=== PATIENT | female | born 1940 | race Caucasian/White ===

== ENCOUNTER 2019-05-12 03:38 | Inpatient (IN) | payer MEDICARE ==
[~2019-05-12] VITALS: Ht 165.1 cm; Wt 81.6 kg
[2019-05-12] MEDS ORDERED: ALBUTEROL (0.083%) 2.5MG/3ML NEB HHN STA (03:58)
[2019-05-12] MEDS ORDERED: IPRATROPIUM BROMIDE (0.02%) 0.5MG/2.5ML NEB HHN STA (03:58)
[2019-05-12] MEDS ORDERED: METHYLPREDNISOLONE SOD SUCC 125 MG/2 ML VIAL IV STA (03:58)
[2019-05-12 04:55] LABS: BASOPHILS % 0.6 % (0.0-2.0); EOSINOPHILS % 0.2 % (0.0-5.0); HEMATOCRIT. 41.4 % (36.0-48.0); HEMOGLOBIN. 13.8 g/dL (12.0-16.0); LYMPHOCYTES % 17.7 % (20.0-50.0); MEAN CORPUSCULAR HEMOGLOBIN 29.6 pg (28.0-32.0); MEAN CORPUSCULAR VOLUME 88.9 fL (81.0-99.0); MEAN PLATELET VOLUME 11.4 fl (7.4-10.4); MONOCYTES % 4.2 % (2.0-8.0); NEUTROPHILS % 77.3 % (40.0-76.0); PLATELET 185 x1000/uL (130-400); RED BLOOD CELL COUNT 4.66 mill/uL (4.2-5.4)
[2019-05-12 04:56] LABS: BG BASE EXCESS -1.8 mmol/L (-2.0-2.0); BG CARBOXYHEMOGLOBIN 0.9 % (0.5-1.5); BG DEOXYHEMOGLOBIN 2.8 % (0.0-5.0); BG FRACTION INSPIRED OXYGEN 40; BG HCO3 ACT 22.3 mmol/L (22.0-26.0); BG METHEMOGLOBIN 0.4 % (0.0-1.5); BG OXYGEN SATURATION 97.2 % (92.0-98.5); BG OXYHEMOGLOBIN 95.9 % (94.0-97.0); BG PCO2 36.1 mmHg (35.0-45.0); BG PH 7.409 (7.350-7.450); BG PO2 97.6 mmHg (75.0-100.0); BG SAMPLE SITE RIGHT FEMORAL; BG VENT MODE NASAL CANNULA
[2019-05-12 05:01] LABS: CHLORIDE 103 mEq/L (98-107)
[2019-05-12 08:00] VITALS: BP 137/62
[2019-05-12] MEDS ORDERED: TRAMADOL 50MG TABLET PO PRN (08:15)
[2019-05-12] MEDS ORDERED: MAGNESIUM/ALUMINUM HYDROXIDE/SIMETHICONE 30ML UDC PO PRN (08:15)
[2019-05-12] MEDS ORDERED: NA PHOS,M-B/NA PHOS,DI-BA ENEMA 118ML PR PRN (08:15)
[2019-05-12] MEDS ORDERED: GUAIFENESIN 200MG/10ML SUGAR FREE UDC PO PRN (08:15)
[2019-05-12] MEDS ORDERED: LEVOFLOXACIN 500MG PREMIX 100 ML IV SCH (08:15)
[2019-05-12] MEDS ORDERED: IPRATROPIUM/ALBUTEROL 0.5-3(2.5)MG/3ML NEB NEB PRN (08:15)
[2019-05-12] MEDS ORDERED: ONDANSETRON HCL 4MG/2ML INJ IV PRN (08:15)
[2019-05-12] MEDS ORDERED: NITROGLYCERIN 0.4MG TABLET SL SL PRN (08:15)
[2019-05-12] MEDS ORDERED: LORAZEPAM 0.5MG TABLET PO PRN (08:15)
[2019-05-12] MEDS ORDERED: CLONIDINE 0.1MG TABLET PO PRN (08:15)
[2019-05-12 08:45] VITALS: BP 116/54
[2019-05-12] MEDS ORDERED: FAMOTIDINE 20MG TABLET PO SCH (09:00)
[2019-05-12] MEDS ORDERED: MORPHINE SULFATE 2 MG/ML CPJ (NOT FOR IM USE) IV PRN (09:08)
[2019-05-12] MEDS: GUAIFENESIN/DM 600MG/30MG ER TAB 12HR PO SCH ×2 (10:33→22:12)
[2019-05-12] MEDS: LISINOPRIL 20MG TABLET PO SCH ×2 (10:34→22:12)
[2019-05-12] MEDS: ASPIRIN 81MG EC TABLET PO SCH (10:34)
[2019-05-12] MEDS: ENOXAPARIN 40MG/0.4ML SYR SUBCUT SCH (10:35)
[2019-05-12] MEDS: FAMOTIDINE 40MG TABLET PO SCH ×2 (11:17→22:12)
[2019-05-12] MEDS: LEVOFLOXACIN 500MG PREMIX 100 ML IV SCH (11:21)
[2019-05-12 12:00] VITALS: BP 129/60
[2019-05-12] MEDS: ACETAMINOPHEN 325MG TABLET PO PRN ×2 (12:18→19:03)
[2019-05-12 12:23] LABS: CLARITY URINE CLEAR (CLEAR); COLOR URINE YELLOW (YELLOW); KETONES URINE NEGATIVE (NEGATIVE); LEUKOCYTE ESTERASE URINE NEGATIVE (NEGATIVE); NITRITE URINE NEGATIVE (NEGATIVE); OCCULT BLOOD URINE 1+ (NEGATIVE); PH URINE 6.5 (4.5-8.0); PROTEIN URINE NEGATIVE (NEGATIVE); UROBILINOGEN URINE 0.2 E.U./dL (0.2-1.0)
[2019-05-12 12:40] LABS: *AMPHETAMINES SCREEN URINE NEGATIVE (NEGATIVE); *BARBITURATES SCREEN URINE NEGATIVE (NEGATIVE); *BENZODIAZEPINES SCREEN URINE NEGATIVE (NEGATIVE); *COCAINE SCREEN URINE NEGATIVE (NEGATIVE); METHADONE URINE SCREEN NEGATIVE (NEGATIVE); OPIATES URINE SCREEN PRESUMTIVE POSITIVE (NEGATIVE)
[2019-05-12 12:41] LABS: CANNABINOID URINE SCREEN NEGATIVE (NEGATIVE); PHENCYCLIDINE URINE SCREEN NEGATIVE (NEGATIVE)
[2019-05-12 16:00] VITALS: BP 126/62
[2019-05-12] MEDS ORDERED: POTASSIUM CHLORIDE 20MEQ TABLET SR PO NR (16:00)
[2019-05-12] MEDS: IPRATROPIUM/ALBUTEROL 0.5-3(2.5)MG/3ML NEB HHN SCH ×2 (17:15→21:11)
[2019-05-12] MEDS: METHYLPREDNISOLONE SOD SUCC 125 MG/2 ML VIAL IV SCH ×2 (17:38→22:12)
[2019-05-12 20:00] VITALS: BP 114/60
[2019-05-12 21:19] LABS: CREATINE KINASE 53 IU/L (26-192)
[2019-05-12 21:20] LABS: CREATINE KINASE MB FRACTION 1.1 ng/mL (0.5-3.6)
[2019-05-13] VITALS: BP 102/65
[2019-05-13] MEDS: IPRATROPIUM/ALBUTEROL 0.5-3(2.5)MG/3ML NEB HHN SCH ×5 (00:55→15:16)
[2019-05-13 04:00] VITALS: BP 96/58
[2019-05-13] MEDS: METHYLPREDNISOLONE SOD SUCC 125 MG/2 ML VIAL IV SCH ×3 (05:13→21:32)
[2019-05-13 06:53] LABS: CREATINE KINASE 48 IU/L (26-192)
[2019-05-13 07:13] LABS: CREATINE KINASE MB FRACTION 1.3 ng/mL (0.5-3.6)
[2019-05-13 08:00] VITALS: BP 107/48
[2019-05-13] MEDS: LISINOPRIL 20MG TABLET PO SCH ×2 (09:00→21:00)
[2019-05-13] MEDS: FAMOTIDINE 40MG TABLET PO SCH ×2 (10:12→21:32)
[2019-05-13] MEDS: ENOXAPARIN 40MG/0.4ML SYR SUBCUT SCH (10:12)
[2019-05-13] MEDS: GUAIFENESIN/DM 600MG/30MG ER TAB 12HR PO SCH ×2 (10:12→21:32)
[2019-05-13] MEDS: ASPIRIN 81MG EC TABLET PO SCH (10:12)
[2019-05-13] MEDS: LEVOFLOXACIN 500MG PREMIX 100 ML IV SCH (10:32)
[2019-05-13 12:00] VITALS: BP 111/56
[2019-05-13] MEDS: DOCUSATE SODIUM 100MG CAPSULE PO PRN (19:44)
[2019-05-13 20:00] VITALS: BP 94/40
[2019-05-14] VITALS: BP 100/46
[2019-05-14 04:00] VITALS: BP 136/69
[2019-05-14] MEDS: METHYLPREDNISOLONE SOD SUCC 125 MG/2 ML VIAL IV SCH (06:17)
[2019-05-14] MEDS: IPRATROPIUM/ALBUTEROL 0.5-3(2.5)MG/3ML NEB HHN SCH ×4 (08:17→22:48)
[2019-05-14] MEDS: GUAIFENESIN/DM 600MG/30MG ER TAB 12HR PO SCH ×2 (08:52→21:58)
[2019-05-14] MEDS: ASPIRIN 81MG EC TABLET PO SCH (08:52)
[2019-05-14] MEDS: FAMOTIDINE 40MG TABLET PO SCH ×2 (08:52→20:52)
[2019-05-14] MEDS: DOCUSATE SODIUM 100MG CAPSULE PO PRN (08:52)
[2019-05-14] MEDS: ENOXAPARIN 40MG/0.4ML SYR SUBCUT SCH (08:54)
[2019-05-14] MEDS: LISINOPRIL 20MG TABLET PO SCH ×2 (08:57→20:53)
[2019-05-14] MEDS: LEVOFLOXACIN 500MG PREMIX 100 ML IV SCH (12:19)
[2019-05-14] MEDS: PREDNISONE 20MG TABLET PO SCH ×2 (14:20→18:24)
[2019-05-14] MEDS ORDERED: MONTELUKAST SODIUM 10MG TABLET PO SCH (17:00)
[2019-05-14 20:00] VITALS: BP 98/50
[2019-05-14] MEDS: FLUTICASONE PROPIONATE 50MCG/SPRAY BOTTLE BOTHNSTRLS SCH (20:53)
[2019-05-14] MEDS ORDERED: LORATADINE 10MG TABLET PO SCH (21:00)
[2019-05-15] VITALS: BP 100/52
[2019-05-15] MEDS: IPRATROPIUM/ALBUTEROL 0.5-3(2.5)MG/3ML NEB HHN SCH ×2 (03:15→08:10)
[2019-05-15 04:00] VITALS: BP 99/46
[2019-05-15 08:00] VITALS: BP 110/41
[2019-05-15 08:30] VITALS: BP 101/35
[2019-05-15] MEDS: GUAIFENESIN/DM 600MG/30MG ER TAB 12HR PO SCH (09:01)
[2019-05-15] MEDS: ASPIRIN 81MG EC TABLET PO SCH (09:01)
[2019-05-15] MEDS: FAMOTIDINE 40MG TABLET PO SCH (09:01)
[2019-05-15] MEDS: LISINOPRIL 20MG TABLET PO SCH (09:01)
[2019-05-15] MEDS: FLUTICASONE PROPIONATE 50MCG/SPRAY BOTTLE BOTHNSTRLS SCH (09:02)
[2019-05-15] MEDS: ENOXAPARIN 40MG/0.4ML SYR SUBCUT SCH (09:04)
[2019-05-15] MEDS: LEVOFLOXACIN 500MG PREMIX 100 ML IV SCH (10:23)
[2019-05-15] MEDS: PREDNISONE 20MG TABLET PO SCH (10:23)
[2019-05-15 11:05] LABS: BG BASE EXCESS 0.4 mmol/L (-2.0-2.0); BG CARBOXYHEMOGLOBIN 0.7 % (0.5-1.5); BG DEOXYHEMOGLOBIN 5.2 % (0.0-5.0); BG HCO3 ACT 25.1 mmol/L (22.0-26.0); BG METHEMOGLOBIN 0.6 % (0.0-1.5); BG OXYGEN SATURATION 94.7 % (92.0-98.5); BG OXYHEMOGLOBIN 93.5 % (94.0-97.0); BG PCO2 40.9 mmHg (35.0-45.0); BG PH 7.406 (7.350-7.450); BG PO2 76.3 mmHg (75.0-100.0); BG SAMPLE SITE RIGHT BRACHIAL; BG TOTAL HEMOGLOBIN 13.5 g/dL (12.0-18.0); BG VENT MODE ROOM AIR
[2019-05-15 12:00] VITALS: BP 107/37
[2019-05-15 14:23] VITALS: BP 107/37
== END 2019-05-15 16:56 | disposition home or self-care (01) | DRG 189 ==
LOC: ER 03:55 → 7WST 05:27 → EDBEDREQ 05:32 → EDBEDREQTM 05:32 → ENRESERV 07:47 → SUPCPDRO 08:02
PROVIDERS: ADMIT Internal Medicine; ATTEND Internal Medicine
DX: J96.00 Acute respiratory failure, unspecified whether with hypoxia or hypercapnia (principal); J44.1 Chronic obstructive pulmonary disease with (acute) exacerbation; E87.2 Acidosis; J45.901 Unspecified asthma with (acute) exacerbation; J44.0 Chronic obstructive pulmonary disease with (acute) lower respiratory infection; E87.6 Hypokalemia; E83.51 Hypocalcemia; E66.9 Obesity, unspecified; E78.1 Pure hyperglyceridemia; J20.9 Acute bronchitis, unspecified; M19.90 Unspecified osteoarthritis, unspecified site; Z82.49 Family history of ischemic heart disease and other diseases of the circulatory system; Z68.30 Body mass index [BMI] 30.0-30.9, adult; Z83.3 Family history of diabetes mellitus; Z88.0 Allergy status to penicillin
CPT/HCPCS: 36415; 36600; 71045; 80053; 80061; 80305; 81003; 82375; 82550; 82553; 82805; 83036; 83605; 83880; 84484; 85025; 87804; 93005; 93306; 93970; 94640; 96374; 97162; 97165; 99291; J1650; J1956; J2930; J7512